=== PATIENT | female | born 1945 | race Caucasian/White ===

== ENCOUNTER 2022-11-21 08:00 | Inpatient (IN) | payer OTHER ==
[~2022-11-21] VITALS: Ht 170.2 cm; Wt 718.0 kg
[2022-11-21] MEDS ORDERED: METFORMIN HCL500 M3 PO (08:43)
[2022-11-21] MEDS ORDERED: SYNTHROID88 MCG PO (08:43)
[2022-11-21] MEDS ORDERED: TOPROL XL50 M1 PO (08:44)
[2022-11-21] MEDS ORDERED: NORVASC5 MG PO (08:44)
[2022-11-21] MEDS ORDERED: ZOCOR20 MG PO (08:45)
[2022-11-29] MEDS ORDERED: DUI500 PO (15:43)
[2022-11-29] MEDS ORDERED: ELIQUIS2.5 MG PO (15:43)
[2022-11-29] MEDS ORDERED: PERCOCET 5-3251 EACH PO (15:43)
[2022-11-30] MEDS ORDERED: PERCOCET 5-3251 EACH PO (08:15)
== END 2022-11-30 12:07 | DRG 470 ==
LOC: O/R 11-27 05:10 → SURG 11-27 05:10 → SURH 11-27 08:00 → SURG 11-27 09:52 → SURH 11-27 11:45 → SURG 11-30 12:07
PROVIDERS: ADMIT Orthopaedic Surgery; ATTEND Orthopaedic Surgery
PROC: 0MNN0ZZ Release Right Knee Bursa and Ligament, Open Approach (ICD-10-PCS; 2022-11-27)
PROC: 0SRC0JZ Replacement of Right Knee Joint with Synthetic Substitute, Open Approach (ICD-10-PCS; principal; 2022-11-27 11:45)
DX: M17.11 Unilateral primary osteoarthritis, right knee (principal); D62 Acute posthemorrhagic anemia; M22.11 Recurrent subluxation of patella, right knee; M81.0 Age-related osteoporosis without current pathological fracture